=== PATIENT | female | born 1995 | race Caucasian/White ===

== ENCOUNTER 2017-12-23 13:24 | Emergency (ER) | payer BC ==
--- NOTE | 2017-12-23 14:37 | EDPHY ---
H & P Time Seen by Provider: 12/23/17 13:52 HPI/ROS: CHIEF COMPLAINT: Left ankle pain HISTORY OF PRESENT ILLNESS: 22-year-old female presents with left ankle pain. She was hiking just [employer] when she everted her left ankle suddenly. Onset of moderate and persistent left ankle pain. Able to bear weight, but difficult to bear weight. No associated sx. ROS: No numbness, weakness, bleeding, syncopal episode, other injury. Past Medical/Surgical History: Denies Smoking Status: Never smoked Physical Exam: Alert, pleasant Extremities: Left ankle with swelling over the lateral malleolus. There is no posterior lateral malleolus tenderness, midfoot tenderness, or proximal fifth metatarsal tenderness. The ankle is stable and the Achilles tendon is intact. Vascular: Pedal pulses 2+ Neurologic: Ankle and foot with normal sensation and strength Skin: Intact Constitutional: Initial Vital Signs Temperature (C) 36.8 C 12/23/17 13:37 Heart Rate 82 12/23/17 13:37 Respiratory Rate 16 12/23/17 13:37 Blood Pressure 135/91 H 12/23/17 13:37 O2 Sat (%) 95 12/23/17 13:37 O2 Delivery Mode Room Air Allergies/Adverse Reactions: No Known Allergies Allergy (Unverified 12/23/17 13:41) Medical Decision Making - Diagnostics Imaging Results: Xray: no fx Imaging: I viewed and interpreted images myself ED Course/Re-evaluation: Ankle sprain, ankle stirrup splint placed and crutches given. Instructions given. f/u ortho if not improving. Departure - Departure Disposition: Home, Routine, Self-Care Clinical Impression: Left ankle sprain Qualifiers: Encounter type: initial encounter Involved ligament of ankle: anterior talofibular ligament Qualified Code(s): S93.492A - Sprain of other ligament of left ankle, initial encounter Condition: Good Instructions: Ankle Sprain (ED), Ankle Stirrup Splint (ED) Additional Instructions: Take Tylenol 650 mg every 4 hours and/or Ibuprofen 600 mg every 8 hours with food as needed for pain. Apply ice for 30 minutes at a time; 2-3 times per day for the next 1-2 days. Follow up with Orthopedics in 2-4 weeks if symptoms persist or worsening at which time they will evaluate and recommend with you if conservative management versus adjuvant therapy like further imaging is indicated. The x-rays obtained in the emergency department today demonstrate no evidence of an obvious fracture. Referrals: Griffin Damon MD [Medical Doctor] - 5-7 days, if not improved
[2017-12-23 15:02] VITALS: BP 120/75
== END 2017-12-23 15:02 | disposition home or self-care (01) ==
DX: S93.492A Sprain of other ligament of left ankle, initial encounter (principal); X50.9XXA Other and unspecified overexertion or strenuous movements or postures, initial encounter; Y99.8 Other external cause status; Y93.01 Activity, walking, marching and hiking
CPT/HCPCS: L4350